=== PATIENT | male | born 1980 | race Caucasian/White ===

== ENCOUNTER 2025-02-05 08:33 | Emergency (ER) | payer OTHER, SELFPAY ==
[2025-02-05 08:54] VITALS: BP 155/106; PULSE 80; RESP 20; TEMP 36.8; O2SAT 100
--- NOTE | 2025-02-05 08:58 | ED.GIBLEED ---
HPI - GI Bleed General Chief complaint: Unspecified Stated complaint: bleeding from rectum Time Seen by Provider: 02/05/25 09:00 Source: patient Mode of arrival: ambulatory Limitations: no limitations History of Present Illness HPI Narrative: Eyad is a 44-year-old male patient presenting to the clinic today with complaints possible bleeding hemorrhoid. He reports that he has had some hard bowel movements over the past few days and developed some bleeding to his rectal area as well as some discomfort. He notices on bright red blood on the toilet paper and in his underwear. Has been using tucks suppositories. Denies any abdominal pain. No fevers, chills, body aches. Related Data Home Medications ?Medication ?Instructions ?Recorded ?Confirmed ?Last Taken ?Type omeprazole 10 mg capsule,delayed 10 mg PO DAILY 07/27/23 01/24/25 Unknown History release Allergies Allergy/AdvReac Type Severity Reaction Status Date / Time Penicillins Allergy Rash Verified 02/05/25 09:02 [facility] Past Medical History Medical History Adjustment disorder with mixed anxiety and depressed mood Body mass index [BMI] 29.0-29.9, adult (10/17/18) Mixed hyperlipidemia Other irritable bowel syndrome Family History Family History Mother Family history of elevated blood lipids Other Hypertension Social History Social History Social History: Caffeine-tea Smoking status: Never smoker Alcohol intake: current Drinks per week: 3 Alcohol use details: beer 3 -4 times per week Substance use: never Substance use type: does not use Lack of Transportation: No Lack of Food: Never True Current Housing: I Have Housing Concerned About Future Housing: No Difficulty Paying Gas/Electric Bills: No Difficulty Paying for Meds: No Currently Unemployed: No Education: Bachelor's Degree Difficulty w/ Childcare or Family Care: No Comments At the time of my signature, I reviewed and agree with the nursing past medical, surgical, social, and family history. There is no relevant family history pertinent to the patient complaint. Exam Narrative: General: Well-developed, well nourished, in no apparent distress. Head: Normocephalic, atraumatic. Cardio: Regular rate and rhythm, s1 and s2 normal, no murmur appreciated. Resp: Clear to auscultation bilaterally, no rhonchi, rales, wheezing or rubs. Abdomen: Soft, pliable, bowel sounds present in all quadrants, non-tender to palpation, no organomegly, no CVAT tenderness. Rectum: 1 large non thrombosed bleeding external hemorrhoid between 5 and 6:00 of the anus Course Course Level of Care: Express Care Visit Vital Signs Vital signs: Vital Signs Temperature 36.8 C 02/05/25 08:54 Pulse Rate 80 02/05/25 08:54 Respiratory Rate 20 02/05/25 08:54 Blood Pressure 155/106 H 02/05/25 08:54 Pulse Oximetry 100 02/05/25 08:54 Oxygen Delivery Room Air 02/05/25 08:54 Temperature 36.8 C 02/05/25 08:54 Pulse Rate 80 02/05/25 08:54 Respiratory Rate 20 02/05/25 08:54 Blood Pressure 155/106 H 02/05/25 08:54 Pulse Oximetry 100 02/05/25 08:54 Oxygen Delivery Room Air 02/05/25 08:54 MDM MDM Narrative Medical decision making narrative: At the time of visit patient is resting comfortably on the exam table. Patient appears to be nontoxic. complaints possible bleeding hemorrhoid. He reports that he has had some hard bowel movements over the past few days and developed some bleeding to his rectal area as well as some discomfort. He notices on bright red blood on the toilet paper and in his underwear. Has been using tucks suppositories. Denies any abdominal pain. No fevers, chills, body aches. On exam patient has 1 large non thrombosed bleeding external hemorrhoid between 5 and 6:00 of the anus Plan: Patient has a an external bleeding hemorrhoid-does not appear to be thrombosed. Prescription for Anusol perineal cream was sent to the pharmacy. Recommend follow-up with PCP as he may need a general surgery referral for bleeding hemorrhoids. Supportive measures were discussed with the patient and they voiced understanding discharge instructions and agrees to treatment plan. Return precautions reviewed Differential Diagnosis Differential Diagnosis: Differential Diagnostic considerations for GI bleeding include PUD, varices, diverticular bleed, ischemic colitis, Meckel?s diverticulum, AV malformation, radiation colitis, infectious colitis, inflammatory colitis, hemorrhoids, Shena-Santacruz syndrome, gastrointestinal hemorrhage, melena, anal fissure. Discharge Plan Discharge Clinical Impression: Bleeding external hemorrhoids Patient Disposition: Home Condition: Stable Instructions: Antibiotic Form, Hemorrhoids (ED) Additional Instructions: Increase fluids and fiber in your diet Take Colace (stool softener) twice daily Apply Anusol as directed. Follow-up with your PCP-may need referral to General surgery for the hemorrhoid banding Patient Language: [place] Prescriptions: New hydrocortisone [Anusol-HC] 2.5 % cream with perineal applicator 1 applic RECTAL BID 7 Days Qty: 30 0RF No Action omeprazole 10 mg capsule,delayed release(DR/EC) 10 mg PO DAILY lisinopril-hydrochlorothiazide 20-25 mg tablet 1 tablet PO DAILY Qty: 90 1RF atorvastatin 40 mg tablet 40 mg PO DAILY Qty: 90 1RF Follow-up/Referrals: Mattie Hammond APRN, REHABILITATION TE[facility] [Primary Care Provider, [facility]] Time of Disposition: 09:01 Quality NIHSS Nursing Documentation ED NIHSS nursing documentation: reviewed/agree
== END 2025-02-05 09:04 | disposition home or self-care (01) ==
PROVIDERS: Emergency Provider Nurse Practitioner Family; PCP Nurse Practitioner Family
DX: K64.4 Residual hemorrhoidal skin tags (principal); E78.2 Mixed hyperlipidemia
CPT/HCPCS: 99213; G0463